=== PATIENT | male | born 1980 | race Two or more races ===

== ENCOUNTER 2017-09-01 07:32 | Emergency (ER) | payer MEDICAID ==
[~2017-09-01] VITALS: Ht 175.3 cm; Wt 104.3 kg
[2017-09-01 08:55] VITALS: BP 121/88
[2017-09-01] MEDS ORDERED: NEOMYCIN-BACITRACIN-POLYM UNITDOSE PKG TOP OINT TOP ONE (09:15)
== END 2017-09-01 09:16 | disposition home or self-care (01) ==
LOC: ER 07:32
DX: S61.411A Laceration without foreign body of right hand, initial encounter (principal); Z88.8 Allergy status to other drugs, medicaments and biological substances; W26.9XXA Contact with unspecified sharp object(s), initial encounter; Y93.89 Activity, other specified; Y99.8 Other external cause status; Y92.89 Other specified places as the place of occurrence of the external cause